=== PATIENT | male | born 1985 ===

== ENCOUNTER 2022-10-14 16:19 | Emergency (ER) | payer MEDICAID ==
[2022-10-14 17:25] LABS: ACETAMINOPHEN < 2 ug/mL (<2); ESTIMATED GFR 123 mL/min (>60)
== END 2022-10-14 22:24 | disposition home or self-care (01) ==
LOC: FB.ED 16:19
DX: K70.10 Alcoholic hepatitis without ascites (principal); F10.20 Alcohol dependence, uncomplicated; F32.A Depression, unspecified; F41.9 Anxiety disorder, unspecified; Z72.0 Tobacco use; Y90.0 Blood alcohol level of less than 20 mg/100 ml
CPT/HCPCS: 80053; 80143; 80179; 80307; 84439; 84443; 85025; 99284